=== PATIENT | female | born 1980 | race Hispanic/Latino ===

== ENCOUNTER 2018-03-11 14:52 | Outpatient (CLI) | payer OTHER | END 2018-03-11 14:53 | disposition home or self-care (01) | LOC: NAV ULT 14:52 | PROVIDERS: ATTEND Family Medicine | DX: R55 Syncope and collapse (principal); I07.1 Rheumatic tricuspid insufficiency; I37.1 Nonrheumatic pulmonary valve insufficiency | CPT/HCPCS: 93306 ==